=== PATIENT | female | born 1960 | race American Indian/Alaskan Native ===

== ENCOUNTER 2019-02-17 02:09 | Emergency (ER) | payer OTHER ==
[2019-02-17 02:22] VITALS: BP 137/82
[2019-02-17 03:00] LABS: Basophils # (Auto) 0.1 K/mm3 (0.0-0.1); Basophils % (Auto) 1.1 % (0.0-1.8); Eosinophils # (Auto) 0.2 K/mm3 (0.0-0.4); Eosinophils % (Auto) 2.4 % (0.0-4.3); Hematocrit 36.5 % (30.3-42.9); Hemoglobin 12.6 gm/dl (10.1-14.3); Lymphocytes # (Auto) 2.9 K/mm3 (1.2-5.4); Mean Corpuscular HGB Conc 34 % (30-34); Mean Corpuscular Volume 83 fl (79-97); Monocytes # (Auto) 0.4 K/mm3 (0.0-0.8); Monocytes % (Auto) 6.3 % (0.0-7.3); Platelet Count 248 K/mm3 (140-440); Red Cell Distribution Width 13.5 % (13.2-15.2)
--- NOTE | 2019-02-17 03:08 | XRay Report ---
EXAM: XR CHEST ROUTINE 2V HISTORY: Chest Pain TECHNIQUE: PA and lateral chest x-ray dated 02/17/2019 at 2:59 AM. COMPARISON: None available. FINDINGS: There is aortic atherosclerosis. The heart size and mediastinum are otherwise within normal limits. The lung soriano and costophrenic angles are clear. There is no acute parenchymal infiltrate, pleural effusion, or pneumothorax seen. The visualized bony structures are within normal limits. IMPRESSION: 1. No evidence for acute cardiopulmonary disease seen. This document is electronically signed by Maria Luisa Bajwa MD., Feb 17 2019 03:06:02 AM ET
[2019-02-17 03:18] LABS: BUN/Creatinine Ratio 16; Blood Urea Nitrogen 13 mg/dL (7-17); Hemolysis Index 11
--- NOTE | 2019-02-17 03:36 | Emergency Department Report ---
ED Chest Pain HPI - General Chief Complaint: Chest Pain Stated Complaint: CHEST PAIN, SINGLETON Time Seen by Provider: 02/17/19 03:14 Source: patient Mode of arrival: Ambulatory Limitations: No Limitations - History of Present Illness Initial Comments: Patient is 58 years old female with history of hypertension. Patient presented to the ER complaining of left sided chest pain, sharp in nature and increases with coughing and taking a deep breath. Patient stated that her symptoms started 5 days ago with cough, productive with greenish sputum. Patient denied any shortness of breath, fever or chills. Patient also denied any nausea or vomiting. MD Complaint: chest pain -: days(s) (3) Onset: during rest Other Symptoms: cough - Related Data Allergies Allergy/AdvReac Type Severity Reaction Status Date / Time No Known Allergies Allergy Verified 02/17/19 02:20 Heart Score - HEART Score History: Slightly suspicious EKG: Non-specific Age: 45-65 Risk factors: 1-2 risk factors Troponin: < normal limit HEART Score: 3 - Critical Actions Critical Actions: 0-3 pts:0.9-1.7%risk of adverse cardiac event.Candidate for discharge ED Review of Systems ROS: Stated complaint: CHEST PAIN, SINGLETON Other details as noted in HPI Comment: All other systems reviewed and negative Constitutional: denies: chills, fever Respiratory: cough. denies: orthopnea, shortness of breath, SOB with exertion, SOB at rest, stridor, wheezing Cardiovascular: chest pain. denies: palpitations, dyspnea on exertion, orthopnea Gastrointestinal: denies: abdominal pain, nausea, vomiting Musculoskeletal: denies: back pain Neurological: denies: headache, weakness ED Past Medical Hx - Past Medical History Previous Medical History?: Yes Hx Hypertension: Yes Additional medical history: HIGH CHOLESTEROL - Surgical History Past Surgical History?: Yes Additional Surgical History: ROTAROR CUFF - Social History Smoking Status: Never Smoker Substance Use Type: None ED Physical Exam - General Limitations: No Limitations General appearance: alert, in no apparent distress - Head Head exam: Present: atraumatic, normocephalic, normal inspection - Eye Eye exam: Present: normal appearance - ENT ENT exam: Present: normal exam, normal orophraynx, mucous membranes moist - Neck Neck exam: Present: normal inspection, full ROM. Absent: tenderness, meningismus, lymphadenopathy, thyromegaly - Respiratory Respiratory exam: Present: normal lung sounds bilaterally - Cardiovascular Cardiovascular Exam: Present: regular rate, normal rhythm, normal heart sounds - GI/Abdominal GI/Abdominal exam: Present: soft, normal bowel sounds. Absent: distended, tenderness, guarding, rebound, rigid, organomegaly, mass, bruit, pulsatile mass, hernia - Extremities Exam Extremities exam: Present: normal inspection, full ROM, normal capillary refill. Absent: pedal edema, calf tenderness - Back Exam Back exam: Present: normal inspection, full ROM. Absent: CVA tenderness (R), CVA tenderness (L), muscle spasm, paraspinal tenderness, vertebral tenderness - Neurological Exam Neurological exam: Present: alert, oriented X3, CN II-XII intact, normal gait, reflexes normal - Skin Skin exam: Present: warm, intact, normal color ED Course Vital Signs 02/17/19 02:21 Temperature 98.7 F Pulse Rate 85 Respiratory 16 Rate Blood Pressure 137/82 [Left] O2 Sat by Pulse 98 Oximetry ED Medical Decision Making - Lab Data Result diagrams: 02/17/19 02:47 02/17/19 02:47 - EKG Data -: EKG Interpreted by Sd EKG shows normal: sinus rhythm Rate: normal - EKG Data Interpretation: no acute changes - Radiology Data Radiology results: report reviewed Chest x-ray is unremarkable. - Medical Decision Making Patient is 58 years old female with history of hypertension. Patient presented to the ER complaining of left sided chest pain, sharp in nature and increases with coughing and taking a deep breath. Patient stated that her symptoms st arted 5 days ago with cough, productive with greenish sputum. Patient denied any shortness of breath, fever or chills. Patient also denied any nausea or vomiting. EKG is unremarkable. Chest x-ray is negative for acute finding. Troponin is negative. Rest of the labs reviewed that is unremarkable. Patient symptoms most likely related to acute bronchitis however the patient advised to follow-up with her primary care physician for further management. I also advised her to return to the ER if symptoms are not improved. Critical care attestation.: If time is entered above; I have spent that time in minutes in the direct care of this critically ill patient, excluding procedure time. ED Disposition Clinical Impression: Chest pain, Acute bronchitis Disposition: TO HOME OR SELFCARE Is pt being admited?: No Condition: Stable Instructions: Chest Pain (ED), Acute Bronchitis (ED) Referrals: ANTONIETA ALLEN MD [Primary Care Provider] - 3-5 Days
== END 2019-02-17 05:48 | disposition home or self-care (01) ==
LOC: ED 02:09
DX: J20.9 Acute bronchitis, unspecified (principal); I10 Essential (primary) hypertension; E78.00 Pure hypercholesterolemia, unspecified; Z98.890 Other specified postprocedural states
CPT/HCPCS: 36415; 71046; 80048; 84484; 85025; 93005; 93010

== ENCOUNTER 2020-02-24 06:24 | Day surgery (SDC) | payer OTHER ==
[2020-02-24] MEDS ORDERED: ASPIRIN EC 325 MG TAB PO NR (06:52)
[2020-02-24] MEDS: SODIUM CHLORIDE 0.9% 500 ML 500 ML IV SCH ×3 (08:16→09:00)
[2020-02-24] MEDS ORDERED: NITROGLYCERIN SYRINGE 0 ML ONE (08:22)
[2020-02-24] MEDS: MIDAZOLAM 2 MG/2 ML INJ ONE ×2 (08:48→09:07)
[2020-02-24] MEDS: fentaNYL 100 MCG/2 ML INJ ONE ×2 (08:48→09:07)
[2020-02-24] MEDS: VERAPAMIL 5 MG/2 ML INJ ONE ×2 (08:49→09:08)
[2020-02-24] MEDS: LIDOCAINE (2%) 20 MG/1 ML VIAL 20 ML MDV INFILTRATI ONE ×2 (08:49→09:07)
[2020-02-24] MEDS: HEPARIN 10,000 UNITS/10 ML VIAL ONE ×2 (08:50→09:08)
[2020-02-24] MEDS: HEPARIN/NS 5000 UNIT/500ML 1,000 ML IR ONE ×2 (08:50→09:00)
--- NOTE | 2020-02-24 10:20 | Cardiac Catherization Report ---
INDICATION FOR PROCEDURE: The patient is a 59-year-old -Thai female with history of persistent chest pain, left arm pain with a negative stress test and continues to have persistent chest pain. The patient was treated for gastritis. She is still having persistent chest pain. She carries a diagnosis of hyperlipidemia and benign essential hypertension. Considering her persistent symptoms, even though stress nuclear imaging did not show significant ischemia, it was decided to proceed with a cardiac catheterization for definitive diagnosis and treatment. The patient is aware of the procedure, potential complications and alternatives of therapy available. The patient is willing to proceed with cardiac catheterization. Also, of interest is to be noted the patient has a small circumferential pericardial effusion noted in 02/2019 and also again on the ultrasound of the gallbladder done recently. DESCRIPTION OF PROCEDURE: The patient was brought to the catheterization laboratory in a fasting condition. The patient was prepared in standard fashion. Sterile drapes were applied. The patient was evaluated for moderate sedation and was felt to be appropriate candidate for moderate sedation. Subsequently, local anesthesia was given in the right wrist area. This is after giving IV Versed and fentanyl for sedation. Right radial artery puncture was made using 21-gauge arterial puncture needle. Subsequently, 5-Azerbaijani sheath was introduced. The patient received intra-arterial verapamil and intravenous heparin. Using 5-Azerbaijani multipurpose catheter, left ventriculogram was performed in [place]OWN[place]E projection using hand injection. Subsequently, using 5-Azerbaijani TIG catheter, angiograms of the left coronary artery were obtained in multiple views. Similarly, angiograms of the right coronary artery were obtained using 5-Azerbaijani JR4 catheter. At the end of the procedure, catheter and sheath were removed. Good hemostasis was achieved with application of radial band. The patient tolerated the procedure well. No untoward complications were noted. The patient was monitored for any side effects from moderate sedation with Versed and fentanyl. The patient was monitored throughout the procedure with pulse oximetry, hemodynamic, and EKG monitoring. At the end of the procedure, the patient is breathing normally, communicating normally. No focal deficits were noticed. The patient's moderate sedation started at 9:07 a.m. and ended at 9:20 a.m. The patient was transferred to the room in stable condition. Following findings were noted. HEMODYNAMICS: 1. Opening aortic pressure 144/74. Left ventricular pressure 149/24. No gradient across the aortic valve. Estimated ejection fraction 55%. 2. Left ventriculogram done in [place] projection showed normal sized left ventricle with normal contractility. End-diastolic and systolic volumes are normal. Mitral regurgitation could not be evaluated because of the limited amount of dye injected. 3. Right coronary artery dominant vessel arises normally from right coronary cusp. Angiographically smooth and normal. 4. Left coronary artery arises normally from left coronary cusp. Left main is long, smooth and normal. LAD curves around the apex. LAD and its diagonal branches and circumflex artery and its branch are angiographically smooth and normal. There is a small amount of calcium in noncoronary cusp area and the aorta. FINAL IMPRESSION: 1. Normal sized left ventricle with normal contractility and pre-angiogram end-diastolic pressure is normal 12 mmHg and post-angiogram end-diastolic pressure is 24 mmHg. 2. Normal coronary anatomy. 3. The patient tolerated the moderate sedation well. No untoward complications were noted. At this time, etiology of her chest pain is not clear. We will get a followup echocardiogram for her followup of the pericardial effusion noted recently. The patient will continue risk factor modification and encouraged her to start exercising. She will be followed in the office. Findings were explained in detail to the patient and she understands. JOB# [id number] ARPITA/GISSEL VIDAL
--- NOTE | 2020-02-24 10:21 | Short Stay Summary ---
Short Stay Documentation Date of service: 02/24/20 - History H&P: obtained from office - Allergies and Medications Current Medications: Allergies No Known Allergies Allergy (Verified 02/17/19 02:20) Home Medications Medication Instructions Recorded Confirmed Last Taken Type AtorvaSTATin [Lipitor] 80 mg PO QHS 02/24/20 02/24/20 02/23/20 History Cetirizine HCl [Cetirizine 5mg tab] 10 mg PO DAILY 02/24/20 02/24/20 02/23/20 History Cholecalciferol (Vitamin D3) 125 mcg PO DAILY 02/24/20 02/24/20 02/23/20 History [Vitamin D3] Famotidine [Pepcid] 40 mg PO QHS 02/24/20 02/24/20 02/23/20 History Fluticasone [Flonase] 1 spray NS QDAY 02/24/20 02/24/20 02/23/20 History Omeprazole 40 mg PO DAILY 02/24/20 02/24/20 02/23/20 History Venlafaxine [Effexor 37.5mg tab] 37.5 mg PO QDAY 02/24/20 02/24/20 02/23/20 Hist ory hydroCHLOROthiazide 25 mg PO QAM 02/24/20 02/24/20 02/23/20 History [Hydrochlorothiazide] Active Medications Aspirin (Ecotrin) 325 mg PO ONCE NR Stop: 02/24/20 18:00 Last Admin: 02/24/20 07:08 Dose: 325 mg Documented by: Sodium Chloride (Nacl 0.9% 500 Ml) 500 mls @ 50 mls/hr IV DIRECT WILDER Stop: 02/24/20 16:59 Last Admin: 02/24/20 09:00 Dose: 50 mls/hr Documented by: - Brief post op/procedure progress note Date of procedure: 02/24/20 Pre-op diagnosis: cp Post-op diagnosis: same Procedure: LHC - see dictated cath report Anesthesia: local Estimated blood loss: none Condition: stable - Disposition Condition at discharge: Good Disposition: DC-01 TO HOME OR SELFCARE - Discharge Diagnoses (1) Normal coronary arteries Status: Chronic (2) HTN (hypertension) Status: Chronic (3) Hyperlipidemia Status: Chronic Short Stay Discharge Plan Activity: advance as tolerated Diet: low fat, low cholesterol, low salt Wound: open to air, keep clean and dry, per your surgeon's advice Follow up with: ANTONIETA ALLEN MD [Primary Care Provider] - 7 Days
[2020-02-24 12:39] VITALS: BP 113/70
== END 2020-02-24 13:08 | disposition home or self-care (01) ==
LOC: CATHLABREC 06:24
PROVIDERS: ATTEND Internal Medicine
DX: R07.89 Other chest pain (principal); E78.5 Hyperlipidemia, unspecified; I10 Essential (primary) hypertension; K21.9 Gastro-esophageal reflux disease without esophagitis; Z98.890 Other specified postprocedural states; Z79.899 Other long term (current) drug therapy; F32.9 Major depressive disorder, single episode, unspecified; F41.9 Anxiety disorder, unspecified; Z82.49 Family history of ischemic heart disease and other diseases of the circulatory system
CPT/HCPCS: 93005; 93458; 99156; C1887; C1894; J1644; J2250; J3010; J7040; Q9967

== ENCOUNTER 2021-02-16 09:42 | Outpatient (CLI) | payer OTHER ==
[2021-02-16 10:59] LABS: Blood Urea Nitrogen 11 mg/dL (7-17)
--- NOTE | 2021-02-16 13:54 | Cat Scan Report ---
CT angio chest INDICATION / CLINICAL INFORMATION: MAIN. TECHNIQUE: Axial CT images were obtained through the chest after injection of IV contrast. 3 plane MIP and/or 3D reconstructions were produced. All CT scans at this location are performed using CT dose reduction f or ALARA by means of automated exposure control. COMPARISON: None available. FINDINGS: PULMONARY ARTERIES: No pulmonary emboli. HEART: No significant abnormality. MEDIASTINUM / KINJAL: No significant abnormality. LUNGS: Lungs are clear No pleural effusion. No pneumothorax. ADDITIONAL FINDINGS: None. UPPER ABDOMEN: No acute findings. SKELETAL STRUCTURES: No significant osseous abnormality. IMPRESSION: 1. No CT evidence for pulmonary embolism. 2. No acute findings. Signer Name: Dionicio Sotelo MD Signed: 02/16/2021 1:50 PM Workstation Name: [id number]
== END 2021-02-16 09:43 | disposition home or self-care (01) ==
LOC: CT 09:42
PROVIDERS: ATTEND Internal Medicine
DX: R07.89 Other chest pain (principal)
CPT/HCPCS: 36415; 71275; 82565; 84520; Q9967

== ENCOUNTER 2021-02-19 23:49 | Emergency (ER) | payer OTHER ==
[2021-02-20] MEDS ORDERED: ASPIRIN 325 MG TAB PO ONE (00:39)
[2021-02-20 01:15] LABS: Basophils # (Auto) 0.1 K/mm3 (0.0-0.1); Basophils % (Auto) 0.9 % (0.0-1.8); Eosinophils # (Auto) 0.1 K/mm3 (0.0-0.4); Eosinophils % (Auto) 1.4 % (0.0-4.3); Hematocrit 38.7 % (30.3-42.9); Hemoglobin 13.2 gm/dl (10.1-14.3); Lymphocytes % (Auto) 44.8 % (13.4-35.0); Mean Corpuscular HGB Conc 34 % (30-34); Mean Corpuscular Volume 86 fl (79-97); Monocytes # (Auto) 0.4 K/mm3 (0.0-0.8); Monocytes % (Auto) 5.8 % (0.0-7.3); Platelet Count 259 K/mm3 (140-440); Red Cell Distribution Width 13.9 % (13.2-15.2)
--- NOTE | 2021-02-20 01:22 | XRay Report ---
CHEST 2 VIEWS INDICATION: chest pain. COMPARISON: FINDINGS: Support devices: None. Heart: Within normal limits. Lungs: No acute air space or interstitial disease. Pleura: No significant pleural effusion. No pneumothorax. Additional findings: None. IMPRESSION: 1. No acute findings. Signer Name: Alok Carty MD Signed: 02/20/2021 1:18 AM Workstation Name: [id number]
[2021-02-20 01:33] LABS: Alanine Aminotransferase 28 units/L (7-56); Albumin 4.5 g/dL (3.9-5); BUN/Creatinine Ratio 16; Blood Urea Nitrogen 16 mg/dL (7-17); Calcium 9.4 mg/dL (8.4-10.2); Hemolysis Index 32
[2021-02-20] MEDS ORDERED: KETOROLAC 60 MG/2 ML INJ IM ONE (06:55)
--- NOTE | 2021-02-20 07:01 | Emergency Department Report ---
ED Chest Pain HPI - General Chief Complaint: Chest Pain Stated Complaint: CHEST/NECK/BACK PAIN/NAUSEA Time Seen by Provider: 02/20/21 06:40 Source: patient Mode of arrival: Ambulatory Limitations: No Limitations - History of Present Illness Initial Comments: Patient is 60 years old female with history of hypertension and GERD. Patient is retired personnel. Patient presented to the ER complaining of chest pain, diffuse with radiation to the back and epigastric area. Patient stated that the pain has been going on for a while. Patient denied any shortness of breath, fever or chills. Patient has been evaluated by Dr. Sanders, cardiologis t recently. Patient had a cardiac catheterization with normal coronary artery. CTA of the chest showed no evidence of pulmonary embolism or any other acute pathology. Patient also added that pain increases with movement. MD Complaint: chest pain - Related Data Home Medications Medication Instructions Recorded Confirmed Last Taken AtorvaSTATin [Lipitor] 80 mg PO QHS 02/24/20 02/24/20 02/23/20 Cetirizine HCl [Cetirizine 5mg tab] 10 mg PO DAILY 02/24/20 02/24/20 02/23/20 Cholecalciferol (Vitamin D3) 125 mcg PO DAILY 02/24/20 02/24/20 02/23/20 [Vitamin D3] Famotidine [Pepcid] 40 mg PO QHS 02/24/20 02/24/20 02/23/20 Fluticasone [Flonase] 1 spray NS QDAY 02/24/20 02/24/20 02/23/20 Omeprazole 40 mg PO DAILY 02/24/20 02/24/20 02/23/20 Venlafaxine [Effexor 37.5mg tab] 37.5 mg PO QDAY 02/24/20 02/24/20 02/23/20 hydroCHLOROthiazide 25 mg PO QAM 02/24/20 02/24/20 02/23/20 [Hydrochlorothiazide] Allergies Allergy/AdvReac Type Severity Reaction Status Date / Time No Known Allergies Allergy Verified 02/17/19 02:20 Heart Score - HEART Score History: Slightly suspicious EKG: Normal Age: 45-65 Risk factors: 1-2 risk factors Troponin: < normal limit HEART Score: 2 - EKG Read Time Time EKG Completed: 00:38 EKG Read Time: 00:45 - Critical Actions Critical Actions: 0-3 pts:0.9-1.7%risk of adverse cardiac event.Candidate for discharge ED Review of Systems ROS: Stated complaint: CHEST/NECK/BACK PAIN/NAUSEA Other details as noted in HPI Comment: All other systems reviewed and negative Constitutional: denies: chills, fever Respiratory: denies: cough, shortness of breath, SOB with exertion Cardiovascular: chest pain. denies: palpitations Gastrointestinal: denies: abdominal pain, nausea, vomiting Musculoskeletal: denies: back pain Neurological: denies: headache, weakness ED Past Medical Hx - Past Medical History Hx Hypertension: Yes Hx GERD: Yes Additional medical history: HIGH CHOLESTEROL - Surgical History Hx Breast Surgery: Yes Additional Surgical History: ROTAROR CUFF - Social History Smoking Status: Never Smoker Substance Use Type: None - Medications Home Medications: Home Medications Medication Instructions Recorded Confirmed Last Taken Type AtorvaSTATin [Lipitor] 80 mg PO QHS 02/24/20 02/24/20 02/23/20 History Cetirizine HCl [Cetirizine 5mg tab] 10 mg PO DAILY 02/24/20 02/24/20 02/23/20 History Cholecalciferol (Vitamin D3) 125 mcg PO DAILY 02/24/20 02/24/20 02/23/20 History [Vitamin D3] Famotidine [Pepcid] 40 mg PO QHS 02/24/20 02/24/20 02/23/20 History Fluticasone [Flonase] 1 spray NS QDAY 02/24/20 02/24/20 02/23/20 History Omeprazole 40 mg PO DAILY 02/24/20 02/24/20 02/23/20 History Venlafaxine [Effexor 37.5mg tab] 37.5 mg PO QDAY 02/24/20 02/24/20 02/23/20 History hydroCHLOROthiazide 25 mg PO QAM 02/24/20 02/24/20 02/23/20 History [Hydrochlorothiazide] ED Physical Exam - General Limitations: No Limitations General appearance: alert, in no apparent distress - Head Head exam: Present: atraumatic, normocephalic, normal inspection - Eye Eye exam: Present: normal appearance, PERRL - ENT ENT exam: Present: normal exam, normal orophraynx, mucous membranes moist - Neck Neck exam: Present: normal inspection, full ROM. Absent: tenderness, meningismus, lymphadenopathy, thyromegaly - Respiratory Respiratory exam: Present: normal lung sounds bilaterally, chest wall tenderness - Cardiovascular Cardiovascular Exam: Present: regular rate, normal rhythm, normal heart sounds - GI/Abdominal GI/Abdominal exam: Present: soft, normal bowel sounds. Absent: distended, tenderness, guarding, rebound, rigid, mass, bruit, pulsatile mass, hernia - Extremities Exam Extremities exam: Present: normal inspection, full ROM, normal capillary refill. Absent: tenderness - Back Exam Back exam: Present: normal inspection. Absent: CVA tenderness (R), CVA tenderness (L) - Neurological Exam Neurological exam: Present: alert, oriented X3, CN II-XII intact - Psychiatric Psychiatric exam: Present: normal mood - Skin Skin exam: Present: warm, intact, normal color ED Course Vital Signs 02/20/21 00:24 Temperature 98.5 F Pulse Rate 80 Respiratory 18 Rate Blood Pressure 129/87 O2 Sat by Pulse 98 Oximetry ED Medical Decision Making - Lab Data Result diagrams: 02/20/21 00:45 02/20/21 00:45 - EKG Data -: EKG Interpreted by Mi EKG shows normal: sinus rhythm Rate: normal - EKG Data Interpretation: no acute changes - Radiology Data Radiology results: report reviewed - Medical Decision Making Patient is 60 years old female with history of hypertension and GERD. Patient is retired personnel. Patient presented to the ER complaining of chest pain, diffuse with radiation to the back and epigastric area. Patient stated that the pain has been going on for a while. Patient denied any shortness of breath, fever or chills. Patient has been evaluated by Dr. Sanders, therapy tech recently. Patient had a cardiac catheterization with normal coronary artery. CTA of the chest showed no evidence of pulmonary embolism or any other acute pathology. Patient also added that pain increases with movement. EKG is unremarkable. Chest x-ray is negative for acute finding. Labs reviewed and is unremarkable including troponin x2. On chest exam patient has significant tenderness in the left upper chest and left lower chest posteriorly. With significant reproducible tenderness. I believe patient symptom is most l ikely related to costochondritis. Patient given prescription for Naprosyn to be taken for a week. Patient stated that she has some issues with Naprosyn last time but she is willing to try again. I gave the patient also a prescription for Toradol p.o. in case if she unable to tolerate the Naprosyn and I strongly advised her not to take the 2 medications together. Patient advised to follow- up with her primary care physician in the next 2 to 3 days and to return to the ER if she develop any new symptoms. Critical care attestation.: If time is entered above; I have spent that time in minutes in the direct care of this critically ill patient, excluding procedure time. ED Disposition Clinical Impression: Atypical chest pain, Acute costochondritis Disposition: DC- TO HOME OR SELFCARE Is pt being admited?: No Condition: Stable Instructions: Nonspecific Chest Pain, Adult, Costochondritis, [id number] Referrals: ANTONIETA ALLEN MD [Primary Care Provider] - 3-5 Days
[2021-02-20 08:29] VITALS: BP 137/72
--- NOTE | 2021-02-21 21:38 | Electrocardiograph Report ---
[facility] Test Date: 2021-02-20 Test Time: 00:38:38 Pat Name: CARTER DAVID Department: Room: Gender: F Web Software Engineer: MARIO : 1960 Requested By: MANAV BROWN Order Number: [id number] Reading MD: Lucy Ramos Measurements Intervals [place] Rate: 73 P: 64 [place]: 160 QRS: 14 QRSD: 88 T: 44 QT: 393 QTc: 435 Interpretive Statements Sinus rhythm No previous ECG available for comparison Electronically Signed On 02-21-2021 21:38:34 EDT by Lucy Ramos
== END 2021-02-20 08:28 | disposition home or self-care (01) ==
LOC: ED 23:49
DX: M94.0 Chondrocostal junction syndrome [Tietze] (principal); I10 Essential (primary) hypertension; K21.9 Gastro-esophageal reflux disease without esophagitis; E78.00 Pure hypercholesterolemia, unspecified; Z79.899 Other long term (current) drug therapy
CPT/HCPCS: 36415; 71046; 80053; 84484; 85025; 93005; 96372; 99284; J1885